=== PATIENT | female | born 1995 | race Caucasian/White ===

== ENCOUNTER 2019-11-06 14:10 | Emergency (ER) | payer OTHER, MEDICAID, SELFPAY ==
[2019-11-06 14:16] VITALS: BP 132/87; PULSE 78; RESP 24; TEMP 36.7; O2SAT 100
--- NOTE | 2019-11-06 15:09 | DI.RAD.S_ITS ---
PROCEDURE: XR THORACIC SPINE 3V INDICATIONS: severe thoracic non-traumatic pain TECHNIQUE: 3 views of the thoracic spine were acquired. COMPARISON: None. FINDINGS: Bones: No fractures or dislocations. No suspicious bony lesions. 12 pairs of ribs are noted, and appear intact where visualized. Soft tissues: No paravertebral stripe thickening. IMPRESSION: Normal thoracic spine plain films. If it would be helpful for clinical management decision making, please consider a dedicated thoracic spine MRI for further evaluation (assuming that there is no contraindication). Dictated by: Lonnie Wiggins M.D. on 11/06/2019 at 15:10 Approved by: Lonnie Wiggins M.D. on 11/06/2019 at 15:10
[2019-11-06] MEDS: predniSONE 20 MG TABLET PO (15:24)
[2019-11-06] MEDS: CYCLOBENZAPRINE 10 MG TABLET PO (15:24)
[2019-11-06] MEDS: HYDROCODONE/ACET 5/325 TABLET 1 TAB PO (15:24)
[2019-11-06 17:14] VITALS: BP 122/60; PULSE 77; RESP 18; O2SAT 99
--- NOTE | 2019-11-06 22:27 | ED_ITS ---
HPI - Back Pain/Injury <Travis AvilesDOMINGUEZP - Last Filed: 11/06/19 22:42> General Chief Complaint: Back Pain/Injury Stated Complaint: SOB, severe chest and back pain, diff breathing Time Seen by Provider: 11/06/19 14:32 Source: patient and family Limitations: no limitations History of Present Illness HPI Narrative: This is a 24 year female, nonsmoker, who presents to ED with severe nontraumatic upper thoracic pain which radiates to left chest and upper neck for last 3 days but with worsened symptoms today. Patient reports before the pain occurred she stretched her lower body by twisting torso with stretching lower extremity in up was way which she has been doing this regularly and felt sudden tightness and pain into her upper back. Patient reports pain is so severe and this has been preventing her to take deep breaths. Patient increases with movement and deep inhalation, movement of upper arms. Due to severe pain patient had panicky breathing and had short of breath. Patient reports hypersensitivity to left upper arms but denies obvious weakness to affected arm. Last LMP about 2 weeks ago and no chance for . Patient had taken ibuprofen last dose at 11:30 a.m. before coming into ED. Related Data Home Medications Medication Instructions Recorded Confirmed ibuprofen 800 mg PO Q6H PRN 11/06/19 11/06/19 Previous Rx's Medication Instructions Recorded cyclobenzaprine 10 mg PO BID PRN #10 tab 11/06/19 hydrocodone-acetaminophen [Vernal] 1 tab PO Q12H PRN #10 tab 11/06/19 prednisone 20 mg PO DAILY 4 Days #4 tab 11/06/19 Allergies Allergy/AdvReac Type Severity Reaction Status Date / Time No Known Drug Allergies Allergy Verified 11/06/19 14:20 Review of Systems <Travis AvilesDOMINGUEZP - Last Filed: 11/06/19 22:42> Review of Systems Narrative: General: Denies fever, chills, fatigue, malaise, sweats. HEENT: Denies sinus pain, ear pain, sore throat, difficulty swallowing, dizziness. Respiratory: Denies (+) pain with deep inhalation, cough, wheezing, hemoptysis, sputum. Cardiovascular: Denies chest pain, palpitations, orthopnea, edema. Gastrointestinal: Denies nausea, vomiting, abdominal pain, diarrhea, cons tipation, melena. : Denies dysuria, frequency, incontinence, hematuria, urinary retention. Musculoskeletal: See HPI Skin: Denies rash, skin lesions, or other. Neurologic: Denies weakness, headache, numbness, change in speech, confusion, seizures, incoordination. Psychiatric: No concerning psychosocial issues. 12-point review of systems is negative except for those stated above. Patient History <JOYCE Vásquez - Last Filed: 11/06/19 22:42> Social History Smoking Status: Never smoker Smoking Status: Never smoker alcohol intake frequency: 0-2 drinks per day Substance Use Type: does not use Exam <JOYCE Vásquez - Last Filed: 11/06/19 22:42> Narrative Exam Narrative: General appearance: well developed, well nourished, in no acute distress. Head: normocephalic, atraumatic, no scalp lesions, non-tender. ENT: Hearing grossly intact. Nose without bleeding, purulent discharge. Mucous membrane moist, no mucosal lesion. Throat without erythema, tonsillar hypertrophy or exudate. Uvula in midline, airway patent. Neck/Thyroid: neck supple, decreased range of motion due to comfort. No visible masses or meningeal signs. No JVD, non-tender without lymphadenopathy. Skin: no suspicious rashes, lesions over visible areas. Warm and dry and appropriate color for ethnicity. Heart: no clubbing, no cyanosis, no edema. S1 and S2 normal. RRR w/o murmurs, clicks, or bruits. Lungs: Breathing even and unlabored. No stridor. No accessory muscles used. Able to speak in full sentences. Chest: normal shape and expansion. Abdomen: non-obese, non-distended. Neurologic: alert and oriented. Cognitive exam, MUSICAL INSTRUMENT MECHANIC and PNS grossly intact on informal exam. Psych: good eye contact, normal affect. Initial Vital Signs Initial Vital Signs: Vital Signs Temperature 98.1 F 11/06/19 14:16 Pulse Rate 78 11/06/19 14:16 Respiratory Rate 24 11/06/19 14:16 Blood Pressure 132/87 11/06/19 14:16 Pulse Oximetry 100 11/06/19 14:16 Back/Spine/Pelvis Thoracic/Lumbar Spine: thoracic and lumbar spine normal to inspection, No mass, pain with thoraco-lumbar ROM (Movements of upper arms. No rash noted.), paraspinal tenderness, thoraco-lumbar ROM limited and thoracic spinal tenderness Other: Left upper arm strength very mildly decreased with finger grasping, upper arm flexion/extension, abduction and adduction. Patient is able to shrug her shoulders without difficulty. <Jorge Herrera MD - Last Filed: 11/07/19 19:22> Initial Vital Signs Initial Vital Signs: Vital Signs Temperature 98.1 F 11/06/19 14:16 Pulse Rate 78 11/06/19 14:16 Respiratory Rate 24 11/06/19 14:16 Blood Pressure 132/87 11/06/19 14:16 Pulse Oximetry 100 11/06/19 14:16 Scores <JOYCE Vásquez - Last Filed: 11/06/19 22:42> GCS Iza coma scale eye opening: Spontaneous [place] coma scale verbal response: Orientated Iza coma scale motor response: Obey commands [place] coma scale total score: 15 Course <JOYCE Vásquez - Last Filed: 11/06/19 22:42> Orders Ordered: Discontinued Medications Hydrocodone Bitart/Acetaminophen (Vernal 5/325) 1 tab PO NOW ONE Stop: 11/06/19 15:10 Last Admin: 11/06/19 15:24 Dose: 1 tab Documented by: NORMAN Cyclobenzaprine HCl (Flexeril) 10 mg PO NOW ONE Stop: 11/06/19 15:10 Last Admin: 11/06/19 15:24 Dose: 10 mg Documented by: NORMAN Prednisone (Deltasone) 20 mg PO NOW ONE Stop: 11/06/19 15:10 Last Admin: 11/06/19 15:24 Dose: 20 mg Documented by: NORMAN Vital Signs Vital signs: Vital Signs - 8 hr 11/06/19 17:14 Pulse Rate 77 Respiratory Rate 18 Blood Pressure 122/60 Pulse Oximetry 99 <Jorge Herrera MD - Last Filed: 11/07/19 19:22> Orders Ordered: Discontinued Medications Hydrocodone Bitart/Acetaminophen (Vernal 5/325) 1 tab PO NOW ONE Stop: 11/06/19 15:10 Last Admin: 11/06/19 15:24 Dose: 1 tab Documented by: NORMAN Cyclobenzaprine HCl (Flexeril) 10 mg PO NOW ONE Stop: 11/06/19 15:10 Last Admin: 11/06/19 15:24 Dose: 10 mg Documented by: NORMAN Prednisone (Deltasone) 20 mg PO NOW ONE Stop: 11/06/19 15:10 Last Admin: 11/06/19 15:24 Dose: 20 mg Documented by: NORMAN Vital Signs Vital signs: Vital Signs - 8 hr 11/06/19 17:14 Pulse Rate 77 Respiratory Rate 18 Blood Pressure 122/60 Pulse Oximetry [address] [facility] - Back Pain/Injury <JOYCE Vásquez - Last Filed: 11/06/19 22:42> Differential Diagnosis Differential diagnosis: Likely thoracic back pain and other (Thoracic disc herniation, thoracic back strain) Medical Records Attestation: I reviewed the patient's medical records. Imaging Data XR-Thoracic spine: Radiologist's Impression: General appearance: well developed, well nourished, in no acute distress. Head: normocephalic, atraumatic, no scalp lesions, non-tender. ENT: Bilateral auditory canals and tympanic membranes clear. Hearing grossly intact. Nose without bleeding, purulent discharge, septal hematoma or deviation. Turbinate without erythema or swelling. Facial sinuses nontender to palpate. Mucous membrane moist, no mucosal lesion. Throat without erythema, tonsillar hypertrophy or exudate. Uvula in midline, airway patent. Neck/Thyroid: neck supple, full range of motion, no visible masses or meningeal signs. No JVD, non-tender without lymphadenopathy. Skin: no suspicious rashes, lesions over visible areas. Warm and dry and appropriate color for ethnicity. Heart: no clubbing, no cyanosis, no edema. S1 and S2 normal. RRR w/o murmurs, clicks, or bruits. Lungs: Breathing even and unlabored. No stridor. No accessory muscles used. Able to speak in full sentences. Chest: normal shape and expansion. Abdomen: non-obese, non-distended. Neurologic: alert and oriented. Cognitive exam, MUSICAL INSTRUMENT MECHANIC and PNS grossly intact on informal exam. Psych: good eye contact, normal affect. [facility] Narrative Medical decision making narrative: This is 24 year female who presents to ED with upper thoracic pain radiating to cervical spine and mid back and left lateral and anterior chest with mildly increased sensation and very mild decreased strength to to left arm after she had stretched her back 3 days ago. Patient was medicated with Flexeril, Vernal, and prednisone while in ED which helped her symptoms and discharged to home with prescriptions. Thoracic spine x-ray does not appreciated acute findings. Patient advised to use [id number] Tylenol and Motrin as needed as 1st line medications and to take prednisone 20 mg for next 4 days. Return precautions were discussed with the patient and to rest during the acute phase and start with gentle stretching when acute symptoms improve. Patient verbalized understanding and in agreement with treatment plan and patient provided with [facility] phone number to select PCP. Discharge Plan Departure Patient Disposition: Home Clinical Impression: Thoracic back pain Qualifiers: Chronicity: acute Back pain laterality: unspecified Qualified Code(s): M54.6 - Pain in thoracic spine Discharge Date/Time: 11/06/19 17:15 Instructions: DI for Thoracic Back Pain Activity Restrictions/Additional Instructions: You have been diagnosed with [thoracic strain. X-ray test does not show acute findings today, dislocation.]. What to do: *Take your medications as directed. Please take Tylenol regular or extra- strength 2 tabs up to 3 times a day as needed for pain. Please take ibuprofen/Motrin 400 mg up to 3 times a day as needed for pain with food. Please take prednisone once a day for next 4 days to decrease inflammation. If you have persistent pain after these medications and you can take half to 1 tab of Vernal up to 2 times a day as needed for discomfort. This can cause drowsiness and constipation so please take precautions. Do not drive, drink alcohol or operate heavy equipments and increase fiber and water intake. Flexeril will help with muscle relaxant and also this can cause drowsiness. Take it at night when you go to sleep to relax her muscles. *Follow up with your primary care provider in 2-3 days, call for an appointment. Let them know you were seen in the ED and that we asked you to be seen in follow up. *Return to ED if you have any new, worsening, or concerning symptoms, such as [chest pain, breathing difficulty, unable to tolerate fluids, fever, tingling/numbness/weakness to upper extremities or any acute concerns]. Prescriptions: New hydrocodone-acetaminophen [Vernal] 5-325 mg tablet 1 tab PO Q12H PRN (Reason: pain) Qty: 10 RF: 0 cyclobenzaprine 10 mg tablet 10 mg PO BID PRN (Reason: muscle spasm) Qty: 10 RF: 0 prednisone 20 mg tablet 20 mg PO DAILY 4 Days Qty: 4 RF: 0 No Action ibuprofen 800 mg Tablet 800 mg PO Q6H PRN (Reason: Pain (Scale Score 1-3)) RF: 0 Referrals: [facility] [Outside]
--- NOTE | 2019-11-10 09:22 | PC.NURSE ---
Pt called stating she was having difficulty paying for norco prescription. Informed we are unable to transfer prescription or issue a new one as it is a controlled substance. Gave her goodrx information which she will follow up on. Encouraged to f/u as needed and indicated and return for any needs or concerns.
== END 2019-11-06 17:15 | disposition home or self-care (01) ==
PROVIDERS: Emergency Provider Nurse Practitioner Family
DX: M54.6 Pain in thoracic spine (principal); R07.89 Other chest pain; R06.02 Shortness of breath
CPT/HCPCS: 72072; 99283